=== PATIENT | male | born 1985 | race Caucasian/White ===

== ENCOUNTER 2022-08-28 08:14 | Emergency (ER) | payer SELFPAY | END 2022-08-28 09:15 | disposition home or self-care (01) | LOC: FB.ED 08:14 | DX: J02.0 Streptococcal pharyngitis (principal); F17.210 Nicotine dependence, cigarettes, uncomplicated | CPT/HCPCS: 87651-QW; 99283 ==

== ENCOUNTER 2023-05-08 22:18 | Emergency (ER) | payer MEDICAID ==
[2023-05-08] MEDS ORDERED: Cephalexin 500 MG Cap PO ONE (22:46)
[2023-05-08] MEDS ORDERED: Ketorolac 30 MG/ML SDV IM ONE (22:46)
[2023-05-08] MEDS ORDERED: Sulfamethoxazole/Trimethoprim 800-160 MG Tab PO ONE (22:47)
== END 2023-05-08 23:05 | disposition home or self-care (01) ==
LOC: FB.ED 22:18
DX: L02.02 Furuncle of face (principal); L02.12 Furuncle of neck
CPT/HCPCS: 96372; 99282; A9270; J1885

== ENCOUNTER 2023-05-09 17:25 | Emergency (ER) | payer MEDICAID ==
[2023-05-09] MEDS ORDERED: cefTRIAXone 1 GM Vial IM ONE (18:34)
== END 2023-05-09 19:00 | disposition home or self-care (01) ==
LOC: FB.ED 17:25
DX: L02.03 Carbuncle of face (principal); L02.02 Furuncle of face; Z72.0 Tobacco use
CPT/HCPCS: 96372; 99283; J0696

== ENCOUNTER 2024-12-09 19:06 | Emergency (ER) | payer MEDICAID ==
[2024-12-09] MEDS ORDERED: Amoxicillin 500 MG Cap PO ONE (19:07)
[2024-12-09] MEDS ORDERED: Ibuprofen 400 MG Tab PO ONE (19:07)
== END 2024-12-09 19:45 | disposition home or self-care (01) ==
LOC: FB.ED 19:06
DX: K04.7 Periapical abscess without sinus (principal)
CPT/HCPCS: 99282; A9270